=== PATIENT | female | born 1990 | race Caucasian/White ===

== ENCOUNTER → 2016-09-18 | Outpatient (CLI) | payer BC ==
[~2016-09-18] MED LIST: ASPEC81 PO; BCPILLS PO
[2016-09-18 10:09] LABS: HEMATOCRIT 38.3 % (37-47); MEAN CELL VOLUME 89.7 fL (80-100); MEAN CORPUSCULAR HEMOGLOBIN 30.9 pg (25-34); MEAN CORPUSCULAR HGB CONC 34.5 g/dl (32-36); PLATELET COUNT 238 K/uL (130-400); RED BLOOD COUNT 4.27 M/uL (4.2-5.4); WHITE BLOOD COUNT 5.37 K/uL (4.8-10.8)
[2016-09-18 10:11] LABS: ALT/SGPT 21 U/L (12-78); BLOOD UREA NITROGEN 11 mg/dl (7-18); BUN/CREATININE RATIO 14.7 (10-20); CALCIUM 8.7 mg/dl (8.5-10.1); CARBON DIOXIDE 29 mmol/L (21-32); CHLORIDE 105 mmol/L (98-107); CHOLESTEROL 191 mg/dl (0-200); CREATININE 0.73 mg/dl (0.60-1.20); GLUCOSE 88 mg/dl (70-99); MAGNESIUM 1.9 mg/dl (1.8-2.4); POTASSIUM 3.9 mmol/L (3.5-5.1); SODIUM 141 mmol/L (136-145)
[2016-09-18 10:20] LABS: ALKALINE PHOSPHATASE 68 U/L (45-117); AST/SGOT 16 U/L (15-37); CHOLESTEROL/HDL RATIO 2.7; HDL CHOLESTEROL 70 mg/dl; LDL CHOLESTEROL CALCULATED 97 mg/dl; TRIGLYCERIDES 118 mg/dl (0-150); VERY LOW DENSITY LIPOPROT CALC 24 mg/dl
== END | disposition home or self-care (01) ==
LOC: C.LAB1850 08:33
PROVIDERS: ATTEND Internal Medicine
DX: Z00.00 Encounter for general adult medical examination without abnormal findings (principal); I48.0 Paroxysmal atrial fibrillation; R00.1 Bradycardia, unspecified

== ENCOUNTER 2021-11-28 05:18 | Inpatient (IN) ==
--- NOTE | 2021-11-23 11:43 | Anesthesiology Consultation ---
Date of Service November 23, 2021 Assessment & Plan (1) Encounter for pre-operative examination: - COVID screening: Per caregiver assisted living on 11/23/2021: Travel screen negative, no known COVID-19 positive contacts or current COVID-19 related symptoms in past 2 weeks. Pt vaccinated. Surgeon arranging preop COVID testing, scheduled 11/24/2021. Awaiting results. 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 History Surgery Operation Date: 11/28/21 07:30 Proposed Procedures p Section in LD (Delivery of Baby Through Abdominal Incision) - Zulma Miller MD, FACOG Height/Weight Height: 5 ft 4 in Weight: 72.575 kg Allergies Allergy/AdvReac Type Severity Reaction Status Date / Time No Known Allergies Allergy Verified 11/23/21 10:55 Medications Home Medications Medication Instructions Recorded Confirmed Last Taken prenat.vits,julian,[id number]-[id number] 1 tab PO DAILY 04/18/21 11/23/21 Unknown Past Medical History Medical History History of atrial flutter 2015 x 1 occurrence after donating blood -- did follow with [facility] briefly but cleared - no recurrence of a- flutter since 2015 History of chicken pox Past Family History Family History Mother Asthma Grandfather Diabetes Brother Diabetes Father Hypertension Other No family history of adverse response to anesthesia Denies family history of Ovarian cancer Prostate cancer Osteoporosis Alzheimer disease Crohn's disease Dementia Depression Heart disease Kidney disease Myocardial infarction Breast cancer Lung cancer Colorectal cancer Stroke Past Surgical History Surgical History History of wisdom tooth extraction Social History Smoking Status: Never smoker Do You Dip or Chew Tobacco: No Hx Alcohol Use: No Hx Substance Use: No substance use type: does not use Testing Electrocardiogram Date: 04/25/21 Sinus bradycardia with marked sinus arrhythmia, rate 58 bpm
--- NOTE | 2021-11-25 22:18 | History & Physical Report ---
Date of Service November 25, 2021 Assessment & Plan (1) 39 weeks gestation of : (2) malpresentation: (3) Failed external cephalic version: (4) Rh negative status during : Plan: Admit for planned section on 11/28/21. Consent reviewed and signed. Labs on arrival. Will reevaluate presentation prior to surgery. Rhogam eval . Of note, did have rhophylac on day of ecv. History of Present Illness Chief Complaint: planned c/s Primary Care Provider: NO PCP 31yo at 39+wks ega presenting on day of admission for planned primary c/s for malpresentation. She did attempt ecv and was not successful. She denies rom, vb and ctx. +FM. PNC c/b 1. GBS pos 2. Breech presentation. 3. Rh negative. PNL rh pos, ri, gbs pos OBH: x 1 GYNH: nl paps Allergies Allergy/AdvReac Type Severity Reaction Status Date / Time No Known Allergies Allergy Verified 11/23/21 12:12 Home Medications Medication Instructions Recorded Confirmed Type prenat.vits,julian,[id number]-[id number]-dmbvw 1 tab PO DAILY 04/18/21 11/23/21 History Patient History Medical History (Updated 11/25/21 @ 22:21 by Zulma Miller MD, FACOG) History of atrial flutter 2015 x 1 occurrence after donating blood -- did follow [place] [facility] briefly but cleared - no recurrence of a- flutter since 2015 History of chicken pox History of pneumonia PAC (premature atrial contraction) Surgical History History of wisdom tooth extraction Family History Mother Asthma Grandfather Diabetes Brother Diabetes Father Hypertension Other No family history of adverse response to anesthesia Denies family history of Ovarian cancer Prostate cancer Osteoporosis Alzheimer disease Crohn's disease Dementia Depression Heart disease Kidney disease Myocardial infarction Breast cancer Lung cancer Colorectal cancer Stroke Social History Smoking Status: Never smoker Second Hand Exposure: No; Hx Alcohol Use: No Hx Substance Use: No Preferred Language: Marshallese Communication Ability: Effective Visual Impairment: Limited Hearing Ability: Normal Railroad Track Inspector Required: No Beliefs That Will Affect Care: None marital status: marital status details: Kuldeep Veronica (31) [phone] Current Living Situation: Spouse Current Living Situation Comment: lives with spouse, no pets current occupational status: employed 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 Feels Safe at Home: Yes Childhood Exposure to Second-Hand Smoke: No caffeine: Yes Dental Care, Regularly: Yes Physical Activity Frequency: 3-4 Times per Week Seatbelt Use: always Sunscreen Use: Yes Assistive Devices: Contacts and Glasses Review of Systems as per Subjective / HPI Physical Exam Constitutional: WD/WN, vitals as above Gastrointestinal (Abdomen): soft gravid nt Musculoskeletal: no edema nontender calves Neurologic: grossly normal Psychiatric: A+Ox3, euthymic affect Genitourinary: OB Exam Abdomen: + heart tones and + breech Coding Level of Care Code None Diagnoses malpresentation O32.9XX0 Failed external cephalic version O32.9XX0 39 weeks gestation of Z3A.39 Rh negative status during O26.899; Z67.91
[2021-11-28] MEDS ORDERED: ceFAZolin 2,000 MG in SYRINGE 0 ML IV SCH (06:00)
[2021-11-28] MEDS ORDERED: LACTATED RINGER'S 1,000 ML IV SCH (06:00)
[2021-11-28] MEDS ORDERED: CITRIC ACID/SODIUM CITRATE 15 ML UDC PO SCH (06:00)
[2021-11-28 06:34] LABS: Basophils # (auto) 0.02 K/uL (0-0.2); Basophils % (auto) 0.2 %; Eosinophils # (auto) 0.11 K/uL (0-0.5); Hematocrit (blood only) 31.8 % (37-47); Immature Granulocytes # (auto) 0.04 K/uL (0.00-0.02); Immature Granulocytes % (auto) 0.4 %; Lymphocytes # (auto) 1.31 K/uL (1.2-3.4); Mean Corpuscular Hemoglobin 32.2 pg (25-34); Mean Corpuscular Hgb Conc 34.6 g/dL (32-36); Monocytes # (auto) 0.85 K/uL (0.11-0.59); Monocytes % (auto) 7.8 %; Neutrophils # (auto) 8.61 K/uL (1.4-6.5); Neutrophils % (auto) 78.6 %; Platelet Count 234 K/uL (130-400); RDW Coefficient of Variation 12.7 % (11.5-14.5); RDW Standard Deviation 43.4 fL (36.4-46.3); Red Blood Count 3.42 M/uL (4.2-5.4); White Blood Count 10.94 K/uL (4.8-10.8)
[2021-11-28] MEDS ORDERED: OXYTOCIN 10 UNITS/ML 10ML VIAL ONE (07:00)
[2021-11-28] MEDS ORDERED: ONDANSETRON INJ 2 MG/ML 2 ML VIAL ONE (07:00)
[2021-11-28] MEDS ORDERED: fentaNYL citrate 100 MCG/2 ML VIAL ONE (07:00)
[2021-11-28] MEDS ORDERED: PHENYLEPHRINE 100MCG/ML 5ML SYR ONE (07:00)
[2021-11-28] MEDS ORDERED: MoRPHine SULFATE PF 1 MG/ML 10 ML AMP/VIAL ONE (07:00)
--- NOTE | 2021-11-28 07:18 | History & Physical Bridge Note ---
Date of Service November 28, 2021 History & Physical Bridge Note I have examined the patient, reviewed the History & Physical and in the interval since the performance of the History & Physical I have noted the following changes of clinical significance: no changes noted
[2021-11-28] MEDS ORDERED: MoRPHine SULFATE 2 MG/ML CARP IV PRN (07:52)
[2021-11-28] MEDS ORDERED: NALOXONE HCL 0.4 MG/1 ML VIAL/CARP IV PRN (07:52)
[2021-11-28] MEDS ORDERED: MoRPHine SULFATE PF 1 MG/ML 10 ML AMP/VIAL INT SPINAL ONE (07:52)
[2021-11-28] MEDS ORDERED: NALBUPHINE HCL INJ 10 MG/ML AMP IV PRN (07:52)
[2021-11-28] MEDS ORDERED: NALOXONE HCL 0.08 MG in SYRINGE 1.8 ML IV PRN (07:52)
[2021-11-28] MEDS ORDERED: diphenhydrAMINE 50 MG/ML VIAL IV PRN (07:52)
[2021-11-28] MEDS ORDERED: NALOXONE HCL 1 MG in SODIUM CHLORIDE 0.9% 1000ML 1,000 ML IV PRN (07:52)
[2021-11-28] MEDS ORDERED: ePHEDrine sulfate 50 MG/ML AMP IV PRN (07:52)
[2021-11-28] MEDS ORDERED: LACTATED RINGER'S 500 ML IV PRN (07:52)
[2021-11-28] MEDS ORDERED: ONDANSETRON INJ 2 MG/ML 2 ML VIAL IV PRN (07:52)
[2021-11-28] MEDS ORDERED: DC INTRASPINAL MORPHINE SCH (08:00)
[2021-11-28] MEDS ORDERED: NO NARCOTICS OR SEDATIVES SCH (08:00)
[2021-11-28] MEDS ORDERED: SODIUM CHLORIDE 0.9% 1000ML 1,000 ML IV SCH (08:00)
[2021-11-28] MEDS ORDERED: SUCCINYLCHOLINE 100MG/5ML SYR IV ONE (08:15)
[2021-11-28] MEDS ORDERED: PROPOFOL IV EMULSION 10 MG/ML 20 ML VIAL IV ONE (08:15)
--- NOTE | 2021-11-28 08:45 | Post Operative Brief Note ---
PG Immediate Post Op with CF Date of Surgery November 28, 2021 Pre & Post Diagnosis Operation Date: 11/28/21 07:30 <No data on this case meets the specified criteria> 1. 39+weeks iup 2. Breech presentation 3. Failed ECV I identified the patient and participated in the time-out.: Yes Procedure Operation Date: 11/28/21 07:30 <No data on this case meets the specified criteria> Primary Low Transverse Section Surgeon Zulma Miller MD, FACOG Furnace Erector Shaylee Estimated Blood Loss 600 Findings Consistent with Post-Op Diagnosis (viable female, apgars pending, normal uterus tubes and ovaries bilaterally) Fluids 1000 Specimens Specimen Description: A: Placenta-hold B: cord blood Drains Kennedy Catheter (inserted after spinal, draining clear yellow urine. Pt tolerated procedure well. Anesthesia to monitor output intraoperatively.) Anesthesia Type General Complications none Disposition Accompanied Patient To Recovery: No Disposition: L&D
[2021-11-28] MEDS ORDERED: OXYTOCIN 10 UNITS/ML 10ML VIAL IM ONE (08:48)
[2021-11-28] MEDS ORDERED: ACETAMINOPHEN 325 MG TAB PO PRN (08:48)
[2021-11-28] MEDS ORDERED: MAGNESIUM HYDROXIDE SUSP 30 ML UDC PO PRN (08:57)
[2021-11-28] MEDS ORDERED: DIPHTHERIA/TETANUS/PERTUSSIS 0.5 ML SYR/VIAL IM ONE (08:57)
[2021-11-28] MEDS ORDERED: BENZOCAINE 20% AER SPR 82.5 GM CAN EXT PRN (08:57)
[2021-11-28] MEDS ORDERED: SENNA 8.6 MG TAB PO PRN (08:57)
[2021-11-28] MEDS ORDERED: HYDROCORTISONE ACETATE 25 MG SUPP PR PRN (08:57)
[2021-11-28] MEDS: KETOROLAC 30 MG/ML VIAL IV PRN ×3 (08:58→23:21)
--- NOTE | 2021-11-28 09:08 | Operative Report ---
PG Post Operative Report Pre & Post Diagnosis Operation Date: 11/28/21 07:30 Pre-Op Diagnosis: 39 weeks , malpresentation, failed external cephalic version. Post-Op Diagnosis: 39 weeks , malpresentation, failed external cephalic version. I identified the patient and participated in the time-out.: Yes Procedure Operation Date: 11/28/21 07:30 Actual Procedures p Primary Low Transverse Section in LD (Delivery of Baby Through Abdominal Incision) living female child at 0814(Bilateral) - Zulma Miller MD, FACOG Surgeon Zulma Miller MD, FACOG Travel Attendants Shaylee Estimated Blood Loss 600 Findings Consistent with Post-Op Diagnosis (viable female, apgars 8,9, normal uterus tubes and ovaries bilaterally) Fluids 1000cc Specimens cord blood placenta hold Drains mondragon Anesthesia Type General Complications none Disposition Accompanied Patient To Recovery: No Disposition: L&D Indications [id number] at 39wks eghiram presents to L&D for planned section due to breech presentation. Patient did attempt ECV but was unsuccessful. She is still breech presentation today on bedside u/s and so ready to proceed. Description of Procedure The patient was taken to the operating room and identified. Spinal anesthesia was attempted but no adequate level. After adequate general anesthesia was obtained, she was placed in the supine position with a leftward tilt on the operating table and prepped and draped in the usual sterile fashion. A mondragon catheter had already been placed. The knife was used to create a Pfannensteil skin incision that was carried down to the underlying layer of fascia. The fascia was nicked in the midline and this opening was extended laterally using Ariza scissors. Henrique clamps were placed on the superior and inferior aspect of the fascial incision tenting it upward and the underlying rectus muscles were dissected off the overlying fascia both sharply and bluntly using Ariza scissors. The rectus muscles were bluntly in the midline. The peritoneal cavity was bluntly entered into. This opening was stretched. The bladder blade was placed. The vesicouterine peritoneum was elevated and opened up into and the bladder flap was created digitally and bladder blade was replaced. The knife was used to create a hysterotomy and this opening was stretched. The operators hand was placed through the hysterotomy and the bladder blade was removed. The buttocks was elevated with fundal pressure the buttocks and body was delivered to the level of the scapula and then the arms were swept across the anterior midline. The head was flexed and delivered. The cord was clamped and cut and the 's mouth and nares were bulb suction. The infant was handed off to the awaiting pediatricians. Cord blood was obtained. The placenta was manually expressed. The uterus was exteriorized and cleared of all clots and debris. Dilute IV Pitocin was begun. The uterine tone was inadequate and IM pitocin 10 units was readied and injected directly into the uterus. The tone was improving. The hysterotomy was closed in a running interlocking fashion using 0 Vicryl followed by a second imbricating layer of 0 Vicryl. The hysterotomy was hemostatic. The pelvis was irrigated. The uterus was returned to the abdomen. The gutters were cleared of all clots and debris. The hysterotomy was reinspected and noted to be hemostatic. The fascia was then closed in running fashion using 0 Vicryl. The subcutaneous fat was copiously irrigated and reapproximated using 2-0 chromic. The skin was closed in a subcuticular fashion using 4-0 monocryl. At this point the procedure was terminated. The patient was transferred to the recovery room in stable condition. All sponge, lap and needle counts are correct x2. I attest to the content of the Intraoperative Record and any orders documented therein. Any exceptions are noted below. OB Procedure Charges 94539
--- NOTE | 2021-11-28 09:31 | Anesthesiology Progress Note ---
Date of Service November 28, 2021 Anesthesia Post Procedure Vital Signs Vital Signs: Temp Pulse Resp BP Pulse Ox 11/28/21 09:25 82 128/64 99 11/28/21 09:20 77 98 11/28/21 09:15 84 130/70 98 11/28/21 09:10 94 H 99 11/28/21 09:05 84 127/79 98 11/28/21 09:00 84 100 11/28/21 08:55 81 133/81 99 11/28/21 05:31 70 111/63 11/28/21 05:28 36.5 C 18 Transfer of Care Handoff Completed per policy Notes Mental Status: alert / awake / arousable and participated in evaluation Patient Amnestic to Procedure: Yes Nausea / Vomiting: adequately controlled Pain: adequately controlled Airway Patency, RR, SpO2: stable & adequate BP & HR: stable & adequate Hydration State: stable & adequate Neuraxial Anesthesia: was administered and sensory block is resolving Anesthetic Complications: no major complications apparent and Pt Satisfied with anesthetic care Notes: SAB converted to GA.
[2021-11-28] MEDS: OXYTOCIN 20 UNITS in LACTATED RINGER'S 1,000 ML IV SCH ×2 (11:07→18:51)
[2021-11-28] MEDS: SIMETHICONE 80 MG CHEW PO SCH ×3 (13:14→22:09)
[2021-11-28] MEDS: DOCUSATE SODIUM 100 MG CAP PO SCH (22:09)
[2021-11-29] MEDS ORDERED: LACTATED RINGER'S 1,000 ML IV SCH (01:00)
[2021-11-29] MEDS ORDERED: ONDANSETRON INJ 2 MG/ML 2 ML VIAL IV PRN (01:53)
[2021-11-29] MEDS ORDERED: ZOLPIDEM TARTRATE 5 MG TAB PO PRN (01:53)
[2021-11-29] MEDS ORDERED: diphenhydrAMINE Capsule 25 MG CAP PO PRN (01:53)
[2021-11-29] MEDS ORDERED: PROMETHAZINE HCL 25 MG in SODIUM CHLORIDE 0.9% 50 ML IV PRN (01:53)
[2021-11-29] MEDS ORDERED: diphenhydrAMINE 50 MG/ML VIAL IV PRN (01:53)
[2021-11-29] MEDS: oxyCODONE/ACETAMINOPHEN 5mg/325mg TAB PO PRN ×3 (06:25→20:11)
[2021-11-29] MEDS: IBUPROFEN 600 MG TAB PO PRN ×3 (06:25→20:12)
[2021-11-29 06:33] LABS: Hematocrit (blood only) 29.6 % (37-47); Hemoglobin 10.1 g/dL (12.0-16.0); Mean Corpuscular Hemoglobin 32.2 pg (25-34); Mean Corpuscular Hgb Conc 34.1 g/dL (32-36); Mean Corpuscular Volume 94.3 fL (80-100); Mean Platelet Volume 9.1 fL (7.4-10.4); Platelet Count 230 K/uL (130-400); RDW Coefficient of Variation 12.7 % (11.5-14.5); RDW Standard Deviation 43.2 fL (36.4-46.3); Red Blood Count 3.14 M/uL (4.2-5.4); White Blood Count 13.29 K/uL (4.8-10.8)
[2021-11-29 06:57] LABS: Basophils # (auto) 0.02 K/uL (0-0.2); Basophils % (auto) 0.2 %; Eosinophils # (auto) 0.04 K/uL (0-0.5); Eosinophils % (auto) 0.3 %; Immature Granulocytes # (auto) 0.04 K/uL (0.00-0.02); Immature Granulocytes % (auto) 0.3 %; Lymphocytes # (auto) 0.91 K/uL (1.2-3.4); Lymphocytes % (auto) 6.8 %; Monocytes # (auto) 0.74 K/uL (0.11-0.59); Monocytes % (auto) 5.6 %; Neutrophils # (auto) 11.54 K/uL (1.4-6.5); Neutrophils % (auto) 86.8 %
--- NOTE | 2021-11-29 07:13 | Obstetrical Progress Note ---
Date of Service November 29, 2021 Assessment & Plan (1) Postcesarean section: Plan: 31yo POD 1 s/p LTCS 2/2 breech at 39 weeks. Performed under general anesthesia due to failed epidural. -Continue routine care -Vitals reviewed- HDS, afebrile -GBS pos -Encourage ambulation, regular diet -mondragon removed this morning, has voided since -bandages removed, incison site c/d/i without signs of infection -Pain control with ibuprofen, acetaminophen, oxy PRN -Encourage -Hgb 10.1, stable -f/u in 6 weeks with OB after discharge (2) Failed external cephalic version: Admission and Anticipated Discharge Date Admission Date: November 28, 2021 Supervising Physician Co-Signing Physician Notes Resident Physician Supervision Note: I was present with [Name of resident] during the history and exam. I discussed the case with the resident and agree with the findings and plan as documented in the note. Any exceptions or clarifications are listed here: [None] Documented By: Bishop Munoz MD, FACOG Subjective Ambulation: yes Voiding: yes. mondragon removed this morning Passing Gas: yes BM: no Diet Tolerance: regular, denies N/V Lochia: small Feeding Type: Current Pain Level(1-10): 3 Review of Systems Review of Systems: Denies fevers/chills. Denies dyspnea, cough. Denies chest pain. Denies dysuria. Denies headache. Physical Exam Physical Exam: General: Alert, oriented, no acute distress Cardiac: Regular rate and rhythm, normal S1, S2. No murmurs appreciated. Respiratory: Clear to auscultation b/l with good air flow entry, symmetric chest rise and fall. No wheezes or crackles. No increased work of breathing or access ory muscle use Abdomen: Soft, mild fundal tenderness, nondistended. Fundus firm and palpable at 1 cm below umbilicus. Bandages removed today, surgical incision clean, dry and intact without erythema, warmth or drainage. Bowel sounds appreciated. No guarding or rebound. Skin: No rashes or lesions Extremities: Warm, dry, well-perfused with capillary refill <2s b/l. No lower extremity edema, erythema or swelling. Negative Mustapha's sign b/l. Results & Data ([facility]) Vital Signs (Past 12 Hours) Vital Signs Temp Pulse Resp BP Pulse Ox 11/29/21 04:30 18 95 11/29/21 03:30 18 96 11/29/21 02:30 18 96 11/29/21 02:00 36.6 C 78 18 122/68 97 11/29/21 01:30 18 97 11/29/21 00:30 18 96 11/28/21 23:30 18 96 11/28/21 23:25 36.9 C 74 18 118/75 97 11/28/21 22:30 18 97 11/28/21 21:51 18 97 11/28/21 20:00 18 96 11/28/21 19:35 36.6 C 77 18 112/73 98 Resident Activity Tracking Resident Involvement: Resident Care Provided Care Provided: OB Delivery
[2021-11-29] MEDS: SIMETHICONE 80 MG CHEW PO SCH ×4 (09:13→20:12)
[2021-11-29] MEDS: PRENATAL VITAMIN 1 TAB PO SCH (09:13)
[2021-11-29] MEDS: FERROUS SULFATE 325 MG TAB PO SCH (09:13)
[2021-11-29] MEDS: DOCUSATE SODIUM 100 MG CAP PO SCH ×2 (09:13→20:12)
[2021-11-30] MEDS: oxyCODONE/ACETAMINOPHEN 5mg/325mg TAB PO PRN ×2 (02:46→07:53)
[2021-11-30] MEDS: IBUPROFEN 600 MG TAB PO PRN ×2 (02:47→07:52)
[2021-11-30 06:49] LABS: Hematocrit (blood only) 31.9 % (37-47); Hemoglobin 10.5 g/dL (12.0-16.0)
--- NOTE | 2021-11-30 07:11 | Obstetrical Progress Note ---
Date of Service November 30, 2021 Assessment & Plan (1) Postcesarean section: Plan: 31yo POD 2 s/p LTCS 2/2 breech at 39 weeks. Performed under general anesthesia due to failed epidural. -Continue routine care -Vitals reviewed- HDS, afebrile -GBS pos -Encourage ambulation, regular diet -voiding well -incision site c/d/i without signs of infection -Pain control with ibuprofen, acetaminophen, oxy PRN -Encourage -Hgb 10.5, stable -f/u in 6 weeks with OB after discharge (2) Failed external cephalic version: Admission and Anticipated Discharge Date Admission Date: November 28, 2021 Supervising Physician Co-Signing Physician Notes Resident Physician Supervision Note: I interviewed and examined the patient. Discussed with Dr. Sheriff and agree with findings and plan as documented in the note. Any exceptions or clarifications are listed here: Doing well. Plan d/c today. Instructions given. Documented By: Libra Clements MD, FACOG Subjective Ambulation: yes Voiding: yes Passing Gas: yes BM: no Diet Tolerance: regular, denies N/V Lochia: small Feeding Type: Current Pain Level(1-10): 1 Review of Systems Review of Systems: Denies fevers/chills. Denies dyspnea, cough. Denies chest pain. Denies dysuria. Denies headache. Physical Exam Physical Exam: General: Alert, oriented, no acute distress Cardiac: Regular rate and rhythm, normal S1, S2. No murmurs appreciated. Respiratory: Clear to auscultation b/l with good air flow entry, symmetric chest rise and fall. No wheezes or crackles. No increased work of breathing or accessory muscle use Abdomen: Soft, mild fundal tenderness, nondistended. Fundus firm and palpable at 2 cm below umbilicus. Surgical incision clean, minimal bruising around incision site but dry and intact without erythema, warmth or drainage. Bowel sounds appreciated. No guarding or rebound. Skin: No rashes or lesions Extremities: Warm, dry, well-perfused with capillary refill <2s b/l. No lower extremity edema, erythema or swelling. Negative Mustapha's sign b/l. Results & Data ([facility]) Vital Signs (Past 12 Hours) Vital Signs Temp Pulse Resp BP Pulse Ox 11/29/21 19:30 36.7 C 78 16 119/74 98 Resident Activity Tracking Resident Involvement: Resident Care Provided Care Provided: OB Delivery
[2021-11-30] MEDS: FERROUS SULFATE 325 MG TAB PO SCH (07:52)
[2021-11-30] MEDS: SIMETHICONE 80 MG CHEW PO SCH (07:52)
[2021-11-30] MEDS: PRENATAL VITAMIN 1 TAB PO SCH (07:52)
[2021-11-30] MEDS: DOCUSATE SODIUM 100 MG CAP PO SCH (07:52)
[2021-11-30] MEDS ORDERED: bisacodyL 10 MG SUPP PR PRN (08:46)
--- NOTE | 2021-12-11 18:10 | Discharge Summary ---
Date of Service Day of admission: November 28, 2021 Day of discharge: November Admission HPI Per Admitting Provider 31yo at 39+wks ega presenting on day of admission for planned primary c/s for malpresentation. She did attempt ecv and was not successful. She denies rom, vb and ctx. +FM. PNC c/b 1. GBS pos 2. Breech presentation. 3. Rh negative. PNL rh pos, ri, gbs pos OBH: x 1 GYNH: nl paps Discharge Data Consultations 11/28/21 05:26 Consult Anesthesiology Stat Procedures Performed Operation Date: 11/28/21 07:30 Actual Procedures p Primary Low Transverse Section in LD (Delivery of Baby Through Abdominal Incision) living female child at 0814(Bilateral) - Zulma Miller MD, [facility] Course (1) Failed external cephalic version: (2) Postcesarean section: The patient underwent the above stated procedure without incident and her postoperative course and recovery was uncomplicated. On her postoperative day #2 she was tolerating a regular diet, voiding spontaneously, ambulating without problem and was using oral meds for adequate pain control. Her postoperative hemoglobin was approximately 10. She was given written and verbal discharge instructions and told to followup in office at 6wks. She was given appropriate pain medicine prescriptions. Coding Level of Care Code None Diagnoses Failed external cephalic version O32.9XX0 Postcesarean section Z98.891
== END 2021-11-30 12:25 | disposition home or self-care (01) | DRG 788 ==
LOC: 4S1 05:18 → EDSTATUS 07:30 → 4E2 11:30

== ENCOUNTER 2025-02-06 05:23 | Inpatient (IN) ==
--- NOTE | 2024-12-02 10:03 | PAT Medication Instructions ---
Medication Instructions Date of Service December 02, 2024 Home Medications Medication Instructions Recorded albuterol sulfate 90 mcg/actuation 2 puff inhalation Q4H PRN 07/25/24 aerosol inhaler shortness of breath or wheezing #8.5 grams albuterol sulfate 90 mcg/actuation aerosol inhaler 2 puff inhalation Q4H PRN acetaminophen 325 mg tablet (Tylenol) 325 mg PO QID PRN calcium carbonate (Tums) 2,250 mg PO TID PRN docusate sodium 100 mg capsule (Colace) 100 mg PO DAILY PRN vitamins-iron fumarate 65 mg iron-folic acid 1 mg tablet 1 tab PO QAM DO NOT take the morning of surgery calcium carbonate (Tums) 2,250 mg PO TID PRN docusate sodium 100 mg capsule (Colace) 100 mg PO DAILY PRN vitamins-iron fumarate 65 mg iron-folic acid 1 mg tablet 1 tab PO QAM Take morning of surgery With a small sip of water, OTHERWISE NOTHING TO EAT OR DRINK AFTER MIDNIGHT: albuterol sulfate 90 mcg/actuation aerosol inhaler 2 puff inhalation Q4H PRN(use if needed; please bring with you to hospital day of surgery if possible) acetaminophen 325 mg tablet (Tylenol) 325 mg PO QID PRN(if needed) Take evening before surgery albuterol sulfate 90 mcg/actuation aerosol inhaler 2 puff inhalation Q4H PRN(if needed) acetaminophen 325 mg tablet (Tylenol) 325 mg PO QID PRN(if needed) calcium carbonate (Tums) 2,250 mg PO TID PRN(if needed) Other Notes If you have any questions please call us at [phone] or [phone] or [phone] or [phone]
--- NOTE | 2024-12-08 14:25 | Anesthesiology Consultation ---
Date of Service December 08, 2024 Assessment & Plan (1) Encounter for pre-operative examination: - 11/28/21: SAB L4-L5 1 attempt, converted to GA Grade 1 view, glidescope 3, ETT 6.5. "Spinal anesthesia was attempted but no adequate level" - Exam & Advise: patient seen at [facility] 12/08/24 for scheduled as above. Concern regarding upcoming delivery given conversion to GA from ineffective neuraxial anesthesia. Patient educated on epidural/spinal. All questions answered. Patient seems satisfied. Business card given. Chart Review Chart Review: Acceptable Risk for Surgery and Patient NOT seen in Pre Admission Testing Teaching & Discussion Pre-Anesthesia Teaching/Discussion Notes: Instructed NPO after midnight before surgery, except medications with 15 cc of water. Medication instructions provide d according to the [facility] guidelines. History Surgery Operation Date: 02/06/25 08:50 Proposed Procedures p Section (Delivery of Baby Through Abdominal Incision) - Zulma Miller MD, FACOG Height/Weight Height: 5 ft 3.5 in Weight: 69.4 kg Allergies Allergy/AdvReac Type Severity Reaction Status Date / Time No Known Allergies Allergy Verified 12/08/24 12:53 Medications Home Medications Medication Instructions Recorded Confirmed Last Taken acetaminophen 325 mg tablet 325 mg PO QID PRN Headache 12/01/24 12/08/24 Unknown (Tylenol) calcium carbonate (Tums) 2,250 mg PO TID PRN Acid Reflux 12/01/24 12/08/24 Unknown docusate sodium 100 mg capsule 100 mg PO DAILY PRN Constipation 12/01/24 12/08/24 Unknown (Colace) vitamins-iron fumarate 65 1 tab PO QAM 12/01/24 12/08/24 Unknown mg iron-folic acid 1 mg tablet acetone (urine) test (Ketone Urine #50 ea 12/08/24 12/08/24 Unknown Test strips) blood sugar diagnostic (OneTouch #150 ea 12/08/24 12/08/24 Unknown Verio test strips) blood-glucose meter (OneTouch #1 ea 12/08/24 12/08/24 Unknown Verio Flex Meter) lancets 33 gauge (OneTouch Delica #150 ea 12/08/24 12/08/24 Unknown Plus Lancet) Past Medical History Medical History (Updated 12/08/24 @ 14:37 by Regine Sanchez PA-C) Acid reflux mild, during Chronic headache denies any change or worsening today/during Constipation Gestational diabetes dx on 11/28/24 > to see endocrine on 12/08/24 History of anesthesia reaction with , "spinal block did not take" > then given general History of atrial flutter 2015 x 1 occurrence after donating blood -- did follow with [facility] briefly but cleared - no recurrence of a- flutter since 2015 History of chicken pox PAC (premature atrial contraction) none recent Patient denies h/o stroke, seizures, heart attack, heart failure, HTN, blood clots/DVTs or blood transfusions. Exercise / Class Metabolic Activity II 4-5 Yardwork/Stairs/Walk up hill (shortness of breath with one flight of stairs in later stage of , denies chest discomfort; denies change or worsening) Past Family History Family History Mother Asthma Grandfather Diabetes Brother Diabetes Father Hypertension Other No family history of adverse response to anesthesia Denies family history of Ovarian cancer Prostate cancer Osteoporosis Alzheimer disease Crohn's disease Dementia Depression Heart disease Kidney disease Myocardial infarction Breast cancer Lung cancer Colorectal cancer Stroke Past Surgical History Surgical History History of wisdom tooth extraction S/P section x1 Past Anesthesia History No Family Hx of Anesthesia Complications History of PONV No Hx of PONV and Hx of Motion Sickness Social History Smoking Status: Never smoker Do You Dip or Chew Tobacco: No Hx Alcohol Use: No Hx Substance Use: No substance use type: does not use Review of Systems Patient denies chest pain, snoring, witnessed apneas, fever, chills, cough, wheezing, or palpitations. Physical Exam Vital Signs Vitals BP 104/61 P 64 TEMP 98.1 SP02 96% on RA RESP 18 Physical Patient resting comfortably in chair in no acute distress, alert and oriented, responding appropriately throughout visit Full cervical extension range of motion without pain TMD 3.5 finger breadths Mallampati Score 2 Dentition: intact, denies chipped or loose teeth, caps/crowns, implants or bridges Lungs: normal respiratory effort. Good air movement, clear throughout to auscultation, no adventitious breath sounds Cardiac: regular rate and rhythm, no murmurs noted Carotid arteries: negative bruit bilat Musculoskeletal: back normal in appearance; nontender over spinous processes and paraspinal muscles Lab Results Anesthesia Preop Results Results Anesthesia Widget: Hgb 11.1 g/dl (12.0-16.0) L 11/24/24 Hct 32.6 % (37.0-47.0) L 11/24/24 Urine Color Dark Yellow 11/24/24 Urine Appearance Clear (Clear) 11/24/24 Urine pH 6.5 (4.5-7.5) 11/24/24 Urine Specific Lafferty 1.023 (1.000-1.030) 11/24/24 Urine Protein Negative (Negative) 11/24/24 Urine Glucose (UA) Negative (Negative) 11/24/24 Urine Ketones Negative (Negative) 11/24/24 Urine Blood Negative (Negative) 11/24/24 Urine Nitrite Negative (Negative) 11/24/24 Urine Bilirubin Negative (Negative) 11/24/24 Urine Urobilinogen Negative (Negative) 11/24/24 Urine Leukocyte Esterase Trace (Negative) H 11/24/24 Urine WBC (Auto) 0-5 /hpf (0-5) 11/24/24 Urine RBC (Auto) 0-2 /hpf (0-2) 11/24/24 Urine Hyaline Casts (Auto) 0-2 /lpf (0-2) 11/24/24 Urine Epithelial Cells (Auto) 6-10 /hpf (0-2) H 11/24/24 Urine Bacteria (Auto) None Seen (None Seen) 11/24/24 Antibody Screen NEGATIVE 11/24/24
--- NOTE | 2025-02-05 11:50 | History & Physical Report ---
Date of Service February 05, 2025 Assessment & Plan (1) 39 weeks gestation of : (2) Previous delivery affecting , antepartum: (3) Gestational diabetes: (4) Rh negative status during : Plan Admit for planned surgery in am. Consent reviewed and signed. Rhogam eval pp. Circumstances at last delivery requiring general anesthesia reviewed, denies concerns at this time. History of Present Illness Chief Complaint: planned repeat c/s Primary Care Provider: JACKELYN Zuniga 34yo at 39+wks ega on day of her admission for planned repeat c/s. She notes issue with spinal last time with planned c/s for breech presentation such that she did have to have general for the procedure. Did meet with anesthesia/PATs this . Will try spinal again. No rom, vb. +FM. No ctx PNC c/b 1. GDM, diet controlled, efw 84% 2. Prior c/s 3. Rhogam eval pp, rhogam given at 28wks 4. GBS pos PNL rh neg, ri, gbs pos OBH: c/s for breech GYNH: nl paps no stds. Allergies Allergy/AdvReac Type Severity Reaction Status Date / Time No Known Allergies Allergy Verified 02/05/25 09:06 Home Medications Medication Instructions Recorded Confirmed Type acetaminophen 325 mg tablet 325 mg PO QID PRN Headache 12/01/24 02/05/25 History (Tylenol) calcium carbonate (Tums) 2,250 mg PO TID PRN Acid Reflux 12/01/24 02/05/25 History docusate sodium 100 mg capsule 100 mg PO DAILY PRN Constipation 12/01/24 02/05/25 History (Colace) vitamins-iron fumarate 65 1 tab PO QAM 12/01/24 02/05/25 History mg iron-folic acid 1 mg tablet acetone (urine) test (Ketone Urine #50 ea 12/08/24 02/05/25 Rx Test strips) blood sugar diagnostic (OneTouch #150 ea 12/08/24 02/05/25 Rx Verio test strips) blood-glucose meter (OneTouch #1 ea 12/08/24 02/05/25 Rx Verio Flex Meter) lancets 33 gauge (OneTouch Delica #150 ea 12/08/24 02/05/25 Rx Plus Lancet) Patient History Medical History (Updated 02/05/25 @ 11:49 by Zulma Miller MD, FACOG) Chronic headache denies any change or worsening today/during History of anesthesia reaction with , "spinal block did not take" > then given general Constipation Acid reflux mild, during Gestational diabetes dx on 11/28/24 > to see endocrine on 12/08/24, visit now completed - diet controlled. History of atrial flutter 2015 x 1 occurrence after donating blood -- did follow with [facility] briefly but cleared - no recurrence of a- flutter since 2015 History of chicken pox PAC (premature atrial contraction) none recent Surgical History S/P section x1 History of wisdom tooth extraction Family History Mother Asthma Grandfather Diabetes Brother Diabetes Father Hypertension Other No family history of adverse response to anesthesia Denies family history of Ovarian cancer Prostate cancer Osteoporosis Alzheimer disease Crohn's disease Dementia Depression Heart disease Kidney disease Myocardial infarction Breast cancer Lung cancer Colorectal cancer Stroke Social History Smoking Status: Never smoker Second Hand Exposure: No; Do You Dip or Chew Tobacco: No; Hx Alcohol Use: Yes (hx social use prior to ) Hx Substance Use: No Preferred Language: [place] Communication Ability: Effective Visual Impairment: Limited Hearing Ability: Normal Grips Required: No Beliefs That Will Affect Care: None marital status: marital status details: Kuldeep Veronica (35) [phone] Current Living Situation: Spouse and Family Current Living Situation Comment: lives with spouse, child, no pets current occupational status: employed 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 How many Children do You have: 1 Feels Safe at Home: Yes Childhood Exposure to Second-Hand Smoke: No Diet: regular caffeine: Yes during the past year weight has: remained stable Dental Care, Regularly: Yes Physical Activity Frequency: 1-2 Times per Week Seatbelt Use: always Sunscreen Use: Yes Assistive Devices: Contacts and Glasses Review of Systems as per Subjective / HPI Physical Exam Constitutional: WD/WN, vitals as above Respiratory: normal respiratory effort, lungs clear to auscultation Cardiovascular: Rate/Rhythm: regular rate and regular rhythm Gastrointestinal (Abdomen): soft gravid nt + fhts Musculoskeletal: no edema nontender calves Neurologic: grossly normal Psychiatric: A+Ox3, euthymic affect Coding Level of Care Code None Diagnoses 39 weeks gestation of Z3A.39 Previous delivery affecting , antepartum O34.219 Gestational diabetes O24.419 Rh negative status during O26.899; Z67.91
[2025-02-06] MEDS: LACTATED RINGER'S 1,000 ML IV SCH ×2 (05:52→06:42)
[2025-02-06] MEDS: ACETAMINOPHEN 500 MG TAB PO SCH (05:59)
[2025-02-06 06:13] LABS: Hematocrit (blood only) 33.3 % (37.0-47.0); Hemoglobin 11.6 g/dl (12.0-16.0); Immature Granulocytes # (auto) 0.03 K/uL (0.01-0.20); Immature Granulocytes % (auto) 0.4 %; Mean Corpuscular Hemoglobin 31.7 pg (25.0-34.0); Mean Corpuscular Volume 91.0 fL (80.0-100.0); Platelet Count 218 K/uL (130-400); RDW Standard Deviation 41.2 fL (36.4-46.3); Red Blood Count 3.66 M/uL (4.20-5.40); White Blood Count 8.55 K/ul (4.8-10.8)
[2025-02-06] MEDS ORDERED: PHENYLEPHRINE 100MCG/ML 5ML SYR ONE (06:51)
[2025-02-06] MEDS ORDERED: PHENYLEPHRINE HCL 25 MG/250 ML NSS IV ONE (06:51)
[2025-02-06] MEDS ORDERED: VASOPRESSIN 20 UNIT/ML VIAL ONE (06:54)
[2025-02-06] MEDS ORDERED: MoRPHine SULFATE PF 1 MG/ML 10 ML AMP/VIAL ONE (06:54)
[2025-02-06] MEDS ORDERED: DEXAMETHASONE SOD INJ 4 MG/ML VIAL ONE (06:54)
[2025-02-06] MEDS ORDERED: ONDANSETRON INJ 2 MG/ML 2 ML VIAL ONE (06:54)
[2025-02-06] MEDS ORDERED: OXYTOCIN 10 UNITS/ML VIAL ONE (06:56)
--- NOTE | 2025-02-06 07:18 | History & Physical Bridge Note ---
Date of Service February 06, 2025 History & Physical Bridge Note I have examined the patient, reviewed the History & Physical and in the interval since the performance of the History & Physical I have noted the following changes of clinical significance: no changes noted
[2025-02-06] MEDS: CITRIC ACID/SODIUM CITRATE 15 ML UDC PO SCH (07:25)
[2025-02-06] MEDS ORDERED: diphenhydrAMINE 50 MG/ML VIAL IV PRN (07:55)
[2025-02-06] MEDS ORDERED: NALBUPHINE HCL INJ 10 MG/ML AMP IV PRN (07:55)
[2025-02-06] MEDS ORDERED: NALOXONE HCL 1 MG in SODIUM CHLORIDE 0.9% 1,000 ML IV PRN (07:55)
[2025-02-06] MEDS ORDERED: ONDANSETRON INJ 2 MG/ML 2 ML VIAL IV PRN (07:55)
[2025-02-06] MEDS ORDERED: PROMETHAZINE 6.25 MG/50.25 ML BAG IV PRN (07:55)
[2025-02-06] MEDS ORDERED: LACTATED RINGER'S 500 ML IV PRN (07:55)
[2025-02-06] MEDS ORDERED: NALOXONE HCL 0.08 MG in SYRINGE 1.8 ML IV PRN (07:55)
[2025-02-06] MEDS ORDERED: HYDROmorphone INJ 0.5 MG/0.5 ML SYR IV PRN (07:55)
[2025-02-06] MEDS ORDERED: NALOXONE HCL 0.4 MG/1 ML VIAL/CARP IV PRN (07:55)
[2025-02-06] MEDS ORDERED: DC INTRASPINAL MORPHINE SCH (08:00)
[2025-02-06] MEDS ORDERED: NO NARCOTICS OR SEDATIVES SCH (08:00)
[2025-02-06] MEDS ORDERED: CALCIUM CARBONATE 500 MG CHEWABLE TAB PO PRN (08:15)
[2025-02-06] MEDS ORDERED: HYDROCORTISONE ACETATE 25 MG SUPP PR PRN (08:15)
[2025-02-06] MEDS ORDERED: MAGNESIUM HYDROXIDE SUSP 30 ML UDC PO PRN (08:15)
[2025-02-06] MEDS ORDERED: SENNA 8.6 MG TAB PO PRN (08:15)
[2025-02-06] MEDS ORDERED: LACTATED RINGER'S 1,000 ML IV SCH (08:15)
[2025-02-06] MEDS ORDERED: BENZOCAINE 20% SPRY 85 APPLN/85 GM CAN EXT PRN (08:15)
--- NOTE | 2025-02-06 08:21 | Operative Report ---
Post Operative Report Pre & Post Diagnosis Operation Date: 02/06/25 07:30 Pre-Op Diagnosis: 1. 39 weeks gestation of 2.Previous delivery, desires repeat c/s 3.Gestational diabetes Post-Op Diagnosis: Same as preoperative I identified the patient and participated in the time-out.: Yes Procedure Operation Date: 02/06/25 07:30 Actual Procedures p Repeat Low Transverse Section in [facility] at 0752 on 02/06/25(Bilateral) - Zulma Miller MD, FACOG Surgeon Zulma Miller MD, FACOG [employer] Lesa Quantitative Blood Loss (QBL) 355cc Findings Consistent with Post-Op Diagnosis (viable male, apgars pending. normal uterus, tubes and ovaries bilaterally) Fluids 800cc Specimens cord blood Drains mondragon Anesthesia Type Spinal Complications none Disposition Accompanied Patient To Recovery: No Disposition: L&D Indications 34yo at 39+wks ega for planned repeat c/s. Description of Procedure The patient was taken to the operating room and identified. After adequate anesthesia was obtained, she was placed in the supine position with a leftward tilt on the operating table and prepped and draped in the usual sterile fashion. A mondragon catheter had already been placed. The knife was used to create a Pfannensteil skin incision that was carried down to the underlying layer of fascia. The fascia was nicked in the midline and this opening was extended laterally using Ariza scissors. Henrique clamps were placed on the superior and i nferior aspect of the fascial incision tenting it upward and the underlying rectus muscles were dissected off the overlying fascia both sharply and bluntly using Ariza scissors. The rectus muscles were bluntly in the midline. The peritoneal cavity was bluntly entered into. This opening was stretched. The bladder blade was placed. The vesicouterine peritoneum was elevated and opened up into and the bladder flap was created digitally and bladder blade was replaced. The knife was used to create a hysterotomy and this opening was stretched. The operators hand was placed through the hysterotomy and the bladder blade was removed. The head was elevated and flexed and with fundal pressure the head was delivered. The shoulders and body were rapidly delivered. The cord was clamped and cut and the 's mouth and nares were bulb suction. The infant was handed off to the awaiting pediatricians. Cord blood was obtained. The placenta was manually expressed. The uterus was exteriorized and cleared of all clots and debris. Dilute IV Pitocin was begun. The uterine tone was improving. The hysterotomy was closed in a running interlocking fashion using 0 Vicryl followed by a second imbricating layer of 0 Vicryl. The hysterotomy was hemostatic. The pelvis was irrigated. The uterus was returned to the abdomen. The gutters were cleared of all clots and debris. The hysterotomy was reinspected and noted to be hemostatic. The fascia was then closed in running fashion using 0 Vicryl. The subcutaneous fat was copiously irrigated and reapproximated using 2-0 chromic. The skin was closed in a subcuticular fashion using 4-0 Vicryl. At this point the procedure was terminated. The patient was transferred to the recovery room in stable condition. All sponge, lap and needle counts are correct x2. I attest to the content of the Intraoperative Record and any orders documented therein. Any exceptions are noted below. OB Procedure Charges 42464
[2025-02-06] MEDS: OXYTOCIN 20 UNITS/LR 1,002 ML IV SCH (08:30)
--- NOTE | 2025-02-06 08:36 | Anesthesiology Progress Note ---
Date of Service February 06, 2025 Anesthesia Post Procedure Vital Signs Vital Signs: Temp Pulse Resp BP Pulse Ox 02/06/25 08:32 67 98 02/06/25 08:27 97 02/06/25 08:27 67 02/06/25 08:27 61 120/70 02/06/25 07:22 58 L 99 02/06/25 07:17 98 02/06/25 07:17 53 L 02/06/25 07:17 57 L 111/69 02/06/25 05:43 66 111/74 02/06/25 05:39 36.9 C 18 Transfer of Care Handoff Completed per policy Notes Mental Status: alert / awake / arousable and participated in evaluation Patient Amnestic to Procedure: No Nausea / Vomiting: adequately controlled Pain: adequately controlled Airway Patency, RR, SpO2: stable & adequate BP & HR: stable & adequate Hydration State: stable & adequate Neuraxial Anesthesia: was administered and sensory block is resolving Anesthetic Complications: no major complications apparent and Pt Satisfied with anesthetic care
[2025-02-06] MEDS: KETOROLAC 30 MG/ML VIAL IV SCH (09:00)
[2025-02-06] MEDS: ACETAMINOPHEN 325 MG TAB PO SCH (14:38)
[2025-02-06] MEDS: SIMETHICONE 80 MG CHEW PO SCH (20:14)
[2025-02-06] MEDS: DOCUSATE SODIUM 100 MG CAP PO SCH (20:14)
[2025-02-07] MEDS ORDERED: diphenhydrAMINE Capsule 25 MG CAP PO PRN (01:56)
[2025-02-07] MEDS ORDERED: PROMETHAZINE 12.5 MG/50.5 ML BAG IV PRN (01:56)
[2025-02-07] MEDS ORDERED: diphenhydrAMINE 50 MG/ML VIAL IV PRN (01:56)
[2025-02-07] MEDS ORDERED: ONDANSETRON INJ 2 MG/ML 2 ML VIAL IV PRN (01:56)
[2025-02-07] MEDS ORDERED: ZOLPIDEM TARTRATE 5 MG TAB PO PRN (01:56)
[2025-02-07] MEDS ORDERED: HYDROmorphone INJ 0.5 MG/0.5 ML SYR IV PRN (01:56)
[2025-02-07 06:41] LABS: Hematocrit (blood only) 28.9 % (37.0-47.0); Hemoglobin 10.0 g/dl (12.0-16.0); Immature Granulocytes # (auto) 0.06 K/uL (0.01-0.20); Immature Granulocytes % (auto) 0.6 %; Mean Corpuscular Hemoglobin 31.9 pg (25.0-34.0); Mean Corpuscular Volume 92.3 fL (80.0-100.0); Platelet Count 170 K/uL (130-400); RDW Standard Deviation 41.8 fL (36.4-46.3); Red Blood Count 3.13 M/uL (4.20-5.40); White Blood Count 10.82 K/ul (4.8-10.8)
--- NOTE | 2025-02-07 06:54 | Obstetrical Progress Note ---
Date of Service <Danelle Hansen DO - Last Filed: 02/07/25 08:14> February 07, 2025 Assessment & Plan <Danelle Hansen DO - Last Filed: 02/07/25 08:14> (1) care following delivery: Plan 34 yo post- day 1 s/p . Feels well today. Vital signs stable Continue post- care Encourage ambulation and Pain controlled with ibuprofen Hgb stable Rhogam as indicated within 72 hours of <Zulma Miller MD, FACOG - Last Filed: 02/07/25 08:22> (1) care following delivery: Subjective <Danelle Hansen DO - Last Filed: 02/07/25 08:14> 34 yo post- day 1 s/p . Ambulation: ambulating normally Voiding: no voiding problems Passing Gas:: Yes Passing Stool:: No Diet Tolerance:: regular diet Lochia:: Small Feeding Type:: bottle feeding Current Pain Level: 0/10 Resting comfortably this AM in NAD. Denies LIN, CP, SOB, N/V/D, LE pain/swelling. Breast: + nipple discharge (clear, bilateral) Genitourinary (female): + dysuria (1 episode yesterday, improving, no dysuria to day) Physical Exam <Danelle Hansen DO - Last Filed: 02/07/25 08:14> General: patient resting comfortably, NAD, non-toxic in appearance, AA&O x 4, answers questions appropriately. Skin: warm, dry, intact HEENT: NC/AT, anicteric sclera, conjunctiva without injection, moist mucus membranes. Heart: +S1/S2, regular, no m/r/g Lungs: equal air entry bilaterally, no rales/rhonchi/wheezes Abd: +BS, soft, NT/ND, uterine fundus firm 3 finger breadths below umbilicus, dressing on caesarean incision C/D/I. Ext: warm, no clubbing/cyanosis or edema, Mustapha's neg. Neuro: nonfocal, patient AA&O x 4, speech intact, no facial droop, moving all extremities on command. Results & Data <Danelle Hansen DO - Last Filed: 02/07/25 08:14> Vital Signs (Past 12 Hours) Vital Signs Temp Pulse Pulse Resp BP Pulse Ox O2 Del Method 02/07/25 02:45 36.4 C L 69 16 106/65 98 Room Air 02/07/25 02:00 16 99 02/07/25 01:10 14 98 02/07/25 00:05 16 100 02/06/25 23:00 14 98 02/06/25 22:47 36.5 C 73 16 104/65 98 Room Air 02/06/25 22:00 14 100 02/06/25 21:00 16 100 02/06/25 19:00 16 100 02/06/25 18:58 36.7 C 60 16 108/68 98 Room Air Supervising Physician <Zulma Miller MD, FACOG - Last Filed: 02/07/25 08:22> Co-Signing Physician Notes Resident Physician Supervision Note: I interviewed and examined the patient. Discussed with Dr. Hansen and agree with findings and plan as documented in the note. Any exceptions or c larifications are listed here: stable doing well. eating, voiding, ambulating, +flatus, bottle feeding. abd soft ff 2 down nt, incision c/d/i. ext nt calves. pod#1s s/p c/s doing well. routine care. hgb noted. reviewed methods to discourage leaking from breasts. she will need rhogam as baby rh pos. Documented By: Zulma Miller MD, FACOG Resident Activity Tracking <Danelle Hansen DO - Last Filed: 02/07/25 08:14> Resident Involvement: Resident Care Provided Care Provided: OB Delivery
[2025-02-07] MEDS: PRENATAL VITAMIN 1 TAB PO SCH (07:43)
[2025-02-07] MEDS: IBUPROFEN 600 MG TAB PO SCH (07:43)
[2025-02-07] MEDS: FERROUS SULFATE 325 MG TAB PO SCH (07:43)
[2025-02-07] MEDS ORDERED: KETOROLAC 30 MG/ML VIAL IV PRN (08:15)
[2025-02-07] MEDS: SODIUM CHLORIDE 0.9% 1,000 ML IV SCH (17:27)
[2025-02-07] MEDS: DIPHTHER/TETAN/PERTUS Vaccine (Tdap, Adol/Adult) 0.5mL IM ONE (17:27)
[2025-02-07] MEDS: MoRPHine SULFATE PF 1 MG/ML 10 ML AMP/VIAL INT SPINAL ONE (17:27)
[2025-02-07 19:58] VITALS: RESP 16; O2SAT 97
[2025-02-08 06:36] LABS: Hematocrit (blood only) 30.1 % (37.0-47.0); Hemoglobin 10.4 g/dl (12.0-16.0)
[2025-02-08] MEDS: IBUPROFEN 600 MG TAB PO PRN (08:29)
[2025-02-08 08:35] VITALS: BP 119/78; PULSE 65; TEMP 97.7
--- NOTE | 2025-02-08 08:52 | Obstetrical Progress Note ---
Date of Service February 08, 2025 Assessment & Plan (1) care following delivery: POD#2 doing well. Incision CDI. Not needing oxycodone here, does not desire Rx for home use - discussed timed tylenol/ibuprofen. Rec'd rhogam. Reviewed /postop instructions, followup 6w PP in office. Subjective Ambulation: ambulating normally Voiding: no voiding problems Diet Tolerance:: regular diet Lochia:: Moderate Review of Systems All systems reviewed & are unremarkable except as noted in HPI & below Physical Exam Constitutional WD/WN, vitals as above no acute distress Respiratory normal respiratory effort Cardiovascular Rate/Rhythm: regular rate and regular rhythm Gastrointestinal (Abdomen) Inspection/Auscultation: abdomen normal to inspection; abdomen not distended Percussion/Palpation: abdomen soft Genitourinary OB Exam Abdomen: + fundal height Fundus: + firm; not tender Results & Data Vital Signs (Past 12 Hours) Vital Signs Temp Pulse Resp BP Pulse Ox O2 Del Method 02/08/25 08:34 36.5 C 65 16 119/78 Room Air 02/07/25 23:45 36.6 C 72 16 117/75 97 Room Air
[2025-02-08] MEDS ORDERED: ACETAMINOPHEN 325 MG TAB PO PRN (14:15)
--- NOTE | 2025-02-11 09:53 | Discharge Summary ---
Date of Service February 11, 2025 Admission HPI Per Admitting Provider 34yo at 39+wks ega on day of her admission for planned repeat c/s. She notes issue with spinal last time with planned c/s for breech presentation such that she did have to have general for the procedure. Did meet with anesthesia/PATs this . Will try spinal again. No rom, vb. +FM. No ctx PNC c/b 1. GDM, diet controlled, efw 84% 2. Prior c/s 3. Rhogam eval pp, rhogam given at 28wks 4. GBS pos PNL rh neg, ri, gbs pos OBH: c/s for breech GYNH: nl paps no stds. Discharge Data Consultations 02/06/25 05:26 Consult Anesthesiology Stat Procedures Performed Operation Date: 02/06/25 07:30 Actual Procedures p Repeat Low Transverse Section in [facility] at 0752 on 02/06/25(Bilateral) - Zulma Miller MD, FACOG Hospital Course (1) care following delivery: The patient underwent the above stated procedure without incident and her postoperative course and recovery was uncomplicated. On her postoperative day #2 she was tolerating a regular diet, voiding spontaneously, ambulating without problem and was using oral meds for adequate pain control. Her postoperative hemoglobin was 10.4. She was given written and verbal discharge instructions and told to followup in office at 6wks. She was advised on appropriate pain medicine prescriptions, she declined prescription pain meds. Coding Level of Care Code None Diagnoses care following delivery Z39.2
== END 2025-02-08 11:15 | disposition home or self-care (01) | DRG 788 ==
LOC: 4S1 05:23 → EDSTATUS 08:50 → 4E2 12:16
DX: O24.420 Gestational diabetes mellitus in childbirth, diet controlled; Z67.91 Unspecified blood type, Rh negative; O34.211 Maternal care for low transverse scar from previous cesarean delivery; O26.893 Other specified pregnancy related conditions, third trimester; O99.824 Streptococcus B carrier state complicating childbirth; Z3A.39 39 weeks gestation of pregnancy; B95.1 Streptococcus, group B, as the cause of diseases classified elsewhere; Z37.0 Single live birth